=== PATIENT | female | born 2000 | race Caucasian/White ===

== ENCOUNTER 2022-01-06 19:40 | Emergency (ER) | payer OTHER, SELFPAY ==
--- NOTE | ~2022-01-06 | CT_ITS ---
EXAMINATION: CT HEAD WITHOUT CONTRAST CLINICAL INFORMATION: Syncope. COMPARISON: None TECHNIQUE: Contiguous axial imaging was performed from the skull base to vertex without intravenous administration of contrast. Coronal and sagittal reformatted images are performed at CT scanner This CT examination was performed using dose optimization techniques as appropriate, variously including the following: *Automated exposure control *Adjustment of mA and/or kV according to patient size (this includes techniques or standardized protocols for targeted exams where dose is matched to indication/reason for exam; i.e. extremities or head) *Use of iterative reconstruction technique DLP: 740 mGy-cm FINDINGS: There is no evidence of acute intracranial hemorrhage or territorial infarction. No abnormal mass-effect or midline shift is seen. Edward to white matter differentiation is well preserved. No extra-axial fluid collections are identified. The ventricles are normal in size. There is no abnormal attenuation within the brain parenchyma. There is no osseous abnormality. The mastoid air cells and visualized portions of the paranasal sinuses are well-aerated. CT/CT head/brain wo IV con IMPRESSION: No acute intracranial pathology.
[2022-01-06 19:47] VITALS: BP 110/78; PULSE 80; O2SAT 100
[2022-01-06 19:50] VITALS: BP 101/59; PULSE 77; RESP 18; TEMP 36.5; O2SAT 97; BMI 40.0
[2022-01-06 20:33] LABS: Hematocrit 39.5 % (37.0-47.0); Hemoglobin 13.4 g/dl (12.0-16.0); Mean Corpuscular HGB Conc 33.9 g/dl (31.0-35.0); Mean Corpuscular Hemoglobin 31.2 pg (27.0-33.0); Mean Corpuscular Volume 92.1 fL (80.0-98.0); Platelet Count 218 X10*3/uL (160-400); Red Blood Count 4.29 X10*6/uL (4.20-5.50); Red Cell Distribution Width 13.1 % (11.0-16.0); White Blood Count 7.8 X10*3/uL (4.8-10.8)
--- NOTE | 2022-01-06 20:41 | ECG_ITS ---
Test Reason : syncope Blood Pressure : / mmHG Vent. Rate : 073 BPM Atrial Rate : 073 BPM P-R Int : 144 ms QRS Dur : 074 ms QT Int : 402 ms P-R-T Axes : 009 019 -01 degrees QTc Int : 442 ms Normal sinus rhythm Normal ECG No previous ECGs available Referred By: Generic ED Physician Electronically Signed By:GALINDO SILVA
[2022-01-06 20:52] LABS: Appearance Urine Clear; Color Urine Yellow; Glucose Urine UA Negative (Negative); Leukocyte Esterase Urine Moderate (2+) (Negative); Nitrite Urine Negative (Negative); PH 6.5 (5.0-9.0); Specific Gravity - Urine 1.015 (1.005-1.025); Urine Blood Negative (Negative); Urine Ketones Negative (Negative); Urine Protein Negative (Neg-Trace)
[2022-01-06 20:57] LABS: Bacteria Urine 2+ (None Seen); Hyaline Casts Urine 0-2 /LPF (0-2); RBC Urine 0-2 /HPF (0-2)
[2022-01-06 21:06] LABS: UPreg QC Valid YES; Urine Pregnancy NEGATIVE (NEGATIVE)
--- NOTE | 2022-01-06 21:33 | ED_ITS ---
HPI - Syncope General Chief Complaint: Syncope <AUDI Mancera Last Filed: 01/07/22 01:38> Stated Complaint: Syncopal Epoisode <AUDI Mancera Last Filed: 01/07/22 01:38> Time Seen by Provider: 01/06/22 21:33 <UADI Mancera Last Filed: 01/07/22 01:38> Source: patient and EMS <AUDI Mancera Last Filed: 01/07/22 01:38> Mode of arrival: EMS <AUDI Mancera Last Filed: 01/07/22 01:38> Limitations: no limitations <AUDI Mancera Last Filed: 01/07/22 01:38> History of Present Illness HPI narrative: This is a 21-year-old female past medical history significant for ADHD, autism, conversion disorder presenting to the emergency department via ambulance after a witnessed near syncopal episode, according to EMS patient was at [facility] at an open house, there was a lot of loud music, strobe lights, patient felt like she was having sensory overload, and felt she was going to pass out. According to EMS she did not fall and hit her head, however she reports loss of consciousness. Patient tells me that she feels as though her legs gave out on her, typical for her during a conversion disorder episode, she tells me that she is having pain all over her body particularly her head, she tells me she does not really remember what happened states she lost consciousness., she tells me she is feeling extremely anxious and would like her mother to be next to her, she tells me she is too nervous to talk right now. Denies chest pain, shortness of breath, nausea, vomiting, abdominal pain, vision changes, dizziness. Not on blood thinners. <AUDI Mancera Last Filed: 01/07/22 01:38> MD complaint: loss of consciousness and felt faint <AUDI Mancera Last Filed: 01/07/22 01:38> Related Data Allergies/Adverse Reactions: Allergies Allergy/AdvReac Type Severity Reaction Status Date / Time amoxicillin Allergy Rash Verified 01/06/22 20:08 <AUDI Mancera - Last Filed: 01/07/22 01:38> Review of Systems Review of Systems: Constitutional : No Weight loss, No Fever, No Chills, No Fatigue, No Malaise ENT/Mouth : No sore throat, No Rhinorrhea Eyes: No Eye Pain, No Swelling, No Redness Cardiovascular : No Chest Pain, No SOB, No Dyspnea on Exertion, No Orthopnea, No Edema, No Palpitations Respiratory : No Cough, No Sputum, No Wheezing Gastrointestinal : No Nausea, No Vomiting, No Diarrhea, No Constipation, No abdominal Pain, No Hematochezia, No Melena Genitourinary : No Dysuria, No Urinary Frequency, No Hematuria, Musculoskeletal : No joint pain, No Myalgias, No Joint Swelling Skin : No Skin Lesions, No rash Neuro : No Weakness, No Numbness, No Dizziness, + Headache All other systems reviewed and are negative <AUDI Mancera - Last Filed: 01/07/22 01:38> Yes all other systems are reviewed and are negative <AUDI Mancera - Last Filed: 01/07/22 01:38> [facility] Past Medical History Attestation statement: The following information was validated with the patient. <AUDI Mancera - Last Filed: 01/07/22 01:38> Source: old records reviewed and nursing notes reviewed <AUDI Mancera Last Filed: 01/07/22 01:38> Social History Social History: Social History Patient Tobacco Use Status: Never used Tobacco Use of substances other than those prescribed or required for medical reasons: No Advance Directives: No Advance Directives Information Provided: Yes <AUDI Mancera Last Filed: 01/07/22 01:38> Physical Exam Vital Signs: Vital Signs: Last Vital Signs Temp 98.2 F 01/07/22 03:49 Pulse 86 01/07/22 03:49 Resp 16 01/07/22 03:49 BP 104/63 01/07/22 03:49 Pulse Ox 97 01/07/22 05:04 O2 Del Method 01/07/22 05:04 BMI result Body Mass Index 40.0 vss <AUDI Mancera - Last Filed: 01/07/22 01:38> Vital Signs: Last Vital Signs Temp 98.2 F 01/07/22 03:49 Pulse 86 01/07/22 03:49 Resp 16 01/07/22 03:49 BP 104/63 01/07/22 03:49 Pulse Ox 97 01/07/22 05:04 O2 Del Method 01/07/22 05:04 BMI result Body Mass Index 40.0 <Patrick Mccarthy MD - Last Filed: 01/07/22 06:14> Appearance: Alert.? Oriented X3.? No acute distress.? Head: Normocephalic, atraumatic, no step-offs or deformities Eyes: Pupils equal, round and reactive to light.? Extraocular movements intact Neck: Normal inspection.? Neck supple.? CVS: Normal heart rate and rhythm.? Pulses normal.? Respiratory: No respiratory distress.? Breath sounds normal.? Abdomen: Soft and nontender.? Skin: Skin warm and dry.? Normal skin color.? Normal skin turgor.? Extremities: No lower extremity edema.? No calf ttp. 5/5 strength to bilateral upper and lower extremities Neuro: Oriented X 3.? No motor deficit.? No sensory deficit. CN 2-12 intact . Normal [id number], [id number]. Steady tandem gait with assistance. <AUDI Mancera - Last Filed: 01/07/22 01:38> Course Reevaluation(s) Reevaluation #1: CBC within normal limits, chemistry with no acute electrolyte abnormalities requiring intervention. EKG with normal sinus rhythm, no signs of acute ischemia. Urine with white blood cells, leukocyte esterases however also moderate amount of epithelial cells, likely contaminated sample patient not complaining of any urinary symptoms, urine negative. CT of the head and brain with no acute findings. <AUDI Mancera - Last Filed: 01/07/22 01:38> Time: 00:32 <AUDI Mancera - Last Filed: 01/07/22 01:38> Reevaluation #2: Patient now tells me she cant walk. Unable to get her up. Tells me she feels horibble, tells me this is likley her conversion do. No meningeal signs on my exam, normal labs, normal head ct, UA and BRADEN pending. At this time patient will need a BHN evaluation. Denies SI and HI. Sign out to Dr. Mccarthy at this time patient will be placed in physician observation to allow more time to be evaluated by the behavioral health team and obtain a urine and BRADEN. <AUDI Mancera - Last Filed: 01/07/22 01:38> Time: 01:33 <AUDI Mancera - Last Filed: 01/07/22 01:38> Reevaluation #3: The patient is feeling better, she is now able to walk. she is concerned about getting back to college because she has mandatory orientation. She told me that she is not suicidal or homicidal and that she believes that she will be okay if she goes back to participate in orientation. I did tell her if she felt as if she was going to hurt herself then she should reach out to the health services or call 911 and we can re-evaluate her here at the hospital. The patient will be discharged and advised to follow-up with health services at [facility] <Patrick Mccarthy MD - Last Filed: 01/07/22 06:14> Time: 06:01 <Patrick Mccarthy MD - Last Filed: 01/07/22 06:14> MDM - Syncope MDM Narrative Medical decision making narrative: 2100 21-year-old female presents status post near syncopal episode, patient poor historian, unable to provide me with a clear history tells me she is feeling extremely anxious. EMS tells me she did not lose consciousness however patient tells me she thinks she did, story is unclear. No evidence signs of trauma. Patient has a history of autism. Physical examination benign however, patient does appear very anxious, neuro exam is nonfocal, following commands. Plan at this time is medical clearance. Will try to get a hold of patient's mother for further information. Will obtain CT of the head to rule out intracranial hemorrhage although unlikely. Will obtain basic labs to rule out infection, basic electrolyte abnormalities. Will also obtain EKG. <AUDI Mayfield - Last Filed: 01/07/22 01:38> Medical Records Attestation: I reviewed the patient's medical records. <AUDI Mancera - Last Filed: 01/07/22 01:38> Lab Data Attestation: I reviewed the patient's lab results. <AUDI Mancera - Last Filed: 01/07/22 01:38> Result diagrams: : 01/06/22 20:19 01/06/22 20:19 <AUDI Mancera - Last Filed: 01/07/22 01:38> Labs: Lab Results 01/06/22 01/06/22 01/06/22 Range/Units 20:19 20:19 20:19 WBC 7.8 (4.8-10.8) X10*3/uL RBC 4.29 (4.20-5.50) X10*6/uL Hgb 13.4 (12.0-16.0) g/dl Hct 39.5 (37.0-47.0) % MCV 92.1 (80.0-98.0) fL MCH 31.2 (27.0-33.0) pg MCHC 33.9 (31.0-35.0) g/dl RDW 13.1 (11.0-16.0) % Plt Count 218 (160-400) X10*3/uL MPV 11.0 (9.4-12.3) fL Absolute Nucleated RBC 0.000 (0.0-0.012) X10*3/uL Nucleated RBC % (auto) 0.0 (0.0-0.2) /100WBC Sodium 140 (135-145) mmol/L Potassium 3.9 (3.3-5.1) mmol/L Chloride 106 (96-108) mmol/L Carbon Dioxide 24 (22-29) mmol/L Anion Gap 14 (12-20) BUN 11 (9-16) mg/dL Creatinine 0.79 (0.5-1.4) mg/dL Estim Creat Clear Calc 145.8 Estimated GFR > 60 Random Glucose 98 (60-115) mg/dL Calcium 8.9 (8.4-10.2) mg/dL Total Bilirubin 0.2 (0.0-1.0) mg/dL AST 12 (5-31) U/L ALT 12 (0-31) U/L Alkaline Phosphatase 82 (39-117) U/L Troponin I High Sens < 3.5 (<3.5-17.0) ng/L Total Protein 6.1 L (6.5-8.0) g/dL Albumin 3.5 (3.5-5.0) g/dL Urine Color Urine Appearance Urine pH (5.0-9.0) Ur Specific [place] (1.005-1.025) Urine Protein (Neg-Trace) mg/dL Urine Glucose (UA) (Negative) mg/dL Urine Ketones (Negative) mg/dL Urine Blood (Negative) Urine Nitrite (Negative) Ur Leukocyte Esterase (Negative) Urine RBC (0-2) /HPF Urine WBC (0-5) /HPF Ur Squamous Epith Cells (0-2) /HPF Calcium Oxalate Crystal Urine Bacteria (None Seen) Hyaline Casts (0-2) /LPF Urine Test (NEGATIVE) Urine Opiates Screen (Not Detect) Urine Fentanyl Screen (Not Detect) Ur Barbiturates Screen (Not Detect) Ur Phencyclidine Scrn (Not Detect) Ur Amphetamines Screen (Not Detect) U Benzodiazepines Scrn (Not Detect) Urine Cocaine Screen (Not Detect) U Marijuana (THC) Screen (Not Detect) 01/06/22 01/06/22 01/07/22 Range/Units 20:36 20:36 02:35 WBC (4.8-10.8) X10*3/uL RBC (4.20-5.50) X10*6/uL Hgb (12.0-16.0) g/dl Hct (37.0-47.0) % MCV (80.0-98.0) fL MCH (27.0-33.0) pg MCHC (31.0-35.0) g/dl RDW (11.0-16.0) % Plt Count (160-400) X10*3/uL MPV (9.4-12.3) fL Absolute Nucleated RBC (0.0-0.012) X10*3/uL Nucleated RBC % (auto) (0.0-0.2) /100WBC Sodium (135-145) mmol/L Potassium (3.3-5.1) mmol/L Chloride (96-108) mmol/L Carbon Dioxide (22-29) mmol/L Anion Gap (12-20) BUN (9-16) mg/dL Creatinine (0.5-1.4) mg/dL Estim Creat Clear Calc Estimated GFR Random Glucose (60-115) mg/dL Calcium (8.4-10.2) mg/dL Total Bilirubin (0.0-1.0) mg/dL AST (5-31) U/L ALT (0-31) U/L Alkaline Phosphatase (39-117) U/L Troponin I High Sens (<3.5-17.0) ng/L Total Protein (6.5-8.0) g/dL Albumin (3.5-5.0) g/dL Urine Color Yellow Yellow Urine Appearance Clear Clear Urine pH 6.5 6.5 (5.0-9.0) Ur Specific [place] 1.015 1.015 (1.005-1.025) Urine Protein Negative Negative (Neg-Trace) mg/dL Urine Glucose (UA) Negative Negative (Negative) mg/dL Urine Ketones Negative Negative (Negative) mg/dL Urine Blood Negative Negative (Negative) Urine Nitrite Negative Negative (Negative) Ur Leukocyte Esterase Moderate (2+) H Moderate (2+) H (Negative) Urine RBC 0-2 0-2 (0-2) /HPF Urine WBC 11-20 H 6-10 H (0-5) /HPF Ur Squamous Epith Cells 6-10 6-10 (0-2) /HPF Calcium Oxalate Crystal Present Urine Bacteria 2+ 2+ (None Seen) Hyaline Casts 0-2 0-2 (0-2) /LPF Urine Test NEGATIVE (NEGATIVE) Urine Opiates Screen (Not Detect) Urine Fentanyl Screen (Not Detect) Ur Barbiturates Screen (Not Detect) Ur Phencyclidine Scrn (Not Detect) Ur Amphetamines Screen (Not Detect) U Benzodiazepines Scrn (Not Detect) Urine Cocaine Screen (Not Detect) U Marijuana (THC) Screen (Not Detect) 01/07/22 Range/Units 02:35 WBC (4.8-10.8) X10*3/uL RBC (4.20-5.50) X10*6/uL Hgb (12.0-16.0) g/dl Hct (37.0-47.0) % MCV (80.0-98.0) fL MCH (27.0-33.0) pg MCHC (31.0-35.0) g/dl RDW (11.0-16.0) % Plt Count (160-400) X10*3/uL MPV (9.4-12.3) fL Absolute Nucleated RBC (0.0-0.012) X10*3/uL Nucleated RBC % (auto) (0.0-0.2) /100WBC Sodium (135-145) mmol/L Potassium (3.3-5.1) mmol/L Chloride (96-108) mmol/L Carbon Dioxide (22-29) mmol/L Anion Gap (12-20) BUN (9-16) mg/dL Creatinine (0.5-1.4) mg/dL Estim Creat Clear Calc Estimated GFR Random Glucose (60-115) mg/dL Calcium (8.4-10.2) mg/dL Total Bilirubin (0.0-1.0) mg/dL AST (5-31) U/L ALT (0-31) U/L Alkaline Phosphatase (39-117) U/L Troponin I High Sens (<3.5-17.0) ng/L Total Protein (6.5-8.0) g/dL Albumin (3.5-5.0) g/dL Urine Color Urine Appearance Urine pH (5.0-9.0) Ur Specific [place] (1.005-1.025) Urine Protein (Neg-Trace) mg/dL Urine Glucose (UA) (Negative) mg/dL Urine Ketones (Negative) mg/dL Urine Blood (Negative) Urine Nitrite (Negative) Ur Leukocyte Esterase (Negative) Urine RBC (0-2) /HPF Urine WBC (0-5) /HPF Ur Squamous Epith Cells (0-2) /HPF Calcium Oxalate Crystal Urine Bacteria (None Seen) Hyaline Casts (0-2) /LPF Urine Test (NEGATIVE) Urine Opiates Screen Not Detected (Not Detect) Urine Fentanyl Screen Not Detected (Not Detect) Ur Barbiturates Screen Not Detected (Not Detect) Ur Phencyclidine Scrn Not Detected (Not Detect) Ur Amphetamines Screen Not Detected (Not Detect) U Benzodiazepines Scrn Not Detected (Not Detect) Urine Cocaine Screen Not Detected (Not Detect) U Marijuana (THC) Screen Not Detected (Not Detect) <Susanita Vázquez, PA - Last Filed: 01/07/22 01:38> Lab Results 01/06/22 01/06/22 01/06/22 Range/Units 20:19 20:19 20:19 WBC 7.8 (4.8-10.8) X10*3/uL RBC 4.29 (4.20-5.50) X10*6/uL Hgb 13.4 (12.0-16.0) g/dl Hct 39.5 (37.0-47.0) % MCV 92.1 (80.0-98.0) fL MCH 31.2 (27.0-33.0) pg MCHC 33.9 (31.0-35.0) g/dl RDW 13.1 (11.0-16.0) % Plt Count 218 (160-400) X10*3/uL MPV 11.0 (9.4-12.3) fL Absolute Nucleated RBC 0.000 (0.0-0.012) X10*3/uL Nucleated RBC % (auto) 0.0 (0.0-0.2) /100WBC Sodium 140 (135-145) mmol/L Potassium 3.9 (3.3-5.1) mmol/L Chloride 106 (96-108) mmol/L Carbon Dioxide 24 (22-29) mmol/L Anion Gap 14 (12-20) BUN 11 (9-16) mg/dL Creatinine 0.79 (0.5-1.4) mg/dL Estim Creat Clear Calc 145.8 Estimated GFR > 60 Random Glucose 98 (60-115) mg/dL Calcium 8.9 (8.4-10.2) mg/dL Total Bilirubin 0.2 (0.0-1.0) mg/dL AST 12 (5-31) U/L ALT 12 (0-31) U/L Alkaline Phosphatase 82 (39-117) U/L Troponin I High Sens < 3.5 (<3.5-17.0) ng/L Total Protein 6.1 L (6.5-8.0) g/dL Albumin 3.5 (3.5-5.0) g/dL Urine Color Urine Appearance Urine pH (5.0-9.0) Ur Specific [place] (1.005-1.025) Urine Protein (Neg-Trace) mg/dL Urine Glucose (UA) (Negative) mg/dL Urine Ketones (Negative) mg/dL Urine Blood (Negative) Urine Nitrite (Negative) Ur Leukocyte Esterase (Negative) Urine RBC (0-2) /HPF Urine WBC (0-5) /HPF Ur Squamous Epith Cells (0-2) /HPF Calcium Oxalate Crystal Urine Bacteria (None Seen) Hyaline Casts (0-2) /LPF Urine Test (NEGATIVE) Urine Opiates Screen (Not Detect) Urine Fentanyl Screen (Not Detect) Ur Barbiturates Screen (Not Detect) Ur Phencyclidine Scrn (Not Detect) Ur Amphetamines Screen (Not Detect) U Benzodiazepines Scrn (Not Detect) Urine Cocaine Screen (Not Detect) U Marijuana (THC) Screen (Not Detect) 01/06/22 01/06/22 01/07/22 Range/Units 20:36 20:36 02:35 WBC (4.8-10.8) X10*3/uL RBC (4.20-5.50) X10*6/uL Hgb (12.0-16.0) g/dl Hct (37.0-47.0) % MCV (80.0-98.0) fL MCH (27.0-33.0) pg MCHC (31.0-35.0) g/dl RDW (11.0-16.0) % Plt Count (160-400) X10*3/uL MPV (9.4-12.3) fL Absolute Nucleated RBC (0.0-0.012) X10*3/uL Nucleated RBC % (auto) (0.0-0.2) /100WBC Sodium (135-145) mmol/L Potassium (3.3-5.1) mmol/L Chloride (96-108) mmol/L Carbon Dioxide (22-29) mmol/L Anion Gap (12-20) BUN (9-16) mg/dL Creatinine (0.5-1.4) mg/dL Estim Creat Clear Calc Estimated GFR Random Glucose (60-115) mg/dL Calcium (8.4-10.2) mg/dL Total Bilirubin (0.0-1.0) mg/dL AST (5-31) U/L ALT (0-31) U/L Alkaline Phosphatase (39-117) U/L Troponin I High Sens (<3.5-17.0) ng/L Total Protein (6.5-8.0) g/dL Albumin (3.5-5.0) g/dL Urine Color Yellow Yellow Urine Appearance Clear Clear Urine pH 6.5 6.5 (5.0-9.0) Ur Specific [place] 1.015 1.015 (1.005-1.025) Urine Protein Negative Negative (Neg-Trace) mg/dL Urine Glucose (UA) Negative Negative (Negative) mg/dL Urine Ketones Negative Negative (Negative) mg/dL Urine Blood Negative Negative (Negative) Urine Nitrite Negative Negative (Negative) Ur Leukocyte Esterase Moderate (2+) H Moderate (2+) H (Negative) Urine RBC 0-2 0-2 (0-2) /HPF Urine WBC 11-20 H 6-10 H (0-5) /HPF Ur Squamous Epith Cells 6-10 6-10 (0-2) /HPF Calcium Oxalate Crystal Present Urine Bacteria 2+ 2+ (None Seen) Hyaline Casts 0-2 0-2 (0-2) /LPF Urine Test NEGATIVE (NEGATIVE) Urine Opiates Screen (Not Detect) Urine Fentanyl Screen (Not Detect) Ur Barbiturates Screen (Not Detect) Ur Phencyclidine Scrn (Not Detect) Ur Amphetamines Screen (Not Detect) U Benzodiazepines Scrn (Not Detect) Urine Cocaine Screen (Not Detect) U Marijuana (THC) Screen (Not Detect) 01/07/22 Range/Units 02:35 WBC (4.8-10.8) X10*3/uL RBC (4.20-5.50) X10*6/uL Hgb (12.0-16.0) g/dl Hct (37.0-47.0) % MCV (80.0-98.0) fL MCH (27.0-33.0) pg MCHC (31.0-35.0) g/dl RDW (11.0-16.0) % Plt Count (160-400) X10*3/uL MPV (9.4-12.3) fL Absolute Nucleated RBC (0.0-0.012) X10*3/uL Nucleated RBC % (auto) (0.0-0.2) /100WBC Sodium (135-145) mmol/L Potassium (3.3-5.1) mmol/L Chloride (96-108) mmol/L Carbon Dioxide (22-29) mmol/L Anion Gap (12-20) BUN (9-16) mg/dL Creatinine (0.5-1.4) mg/dL Estim Creat Clear Calc Estimated GFR Random Glucose (60-115) mg/dL Calcium (8.4-10.2) mg/dL Total Bilirubin (0.0-1.0) mg/dL AST (5-31) U/L ALT (0-31) U/L Alkaline Phosphatase (39-117) U/L Troponin I High Sens (<3.5-17.0) ng/L Total Protein (6.5-8.0) g/dL Albumin (3.5-5.0) g/dL Urine Color Urine Appearance Urine pH (5.0-9.0) Ur Specific [place] (1.005-1.025) Urine Protein (Neg-Trace) mg/dL Urine Glucose (UA) (Negative) mg/dL Urine Ketones (Negative) mg/dL Urine Blood (Negative) Urine Nitrite (Negative) Ur Leukocyte Esterase (Negative) Urine RBC (0-2) /HPF Urine WBC (0-5) /HPF Ur Squamous Epith Cells (0-2) /HPF Calcium Oxalate Crystal Urine Bacteria (None Seen) Hyaline Casts (0-2) /LPF Urine Test (NEGATIVE) Urine Opiates Screen Not Detected (Not Detect) Urine Fentanyl Screen Not Detected (Not Detect) Ur Barbiturates Screen Not Detected (Not Detect) Ur Phencyclidine Scrn Not Detected (Not Detect) Ur Amphetamines Screen Not Detected (Not Detect) U Benzodiazepines Scrn Not Detected (Not Detect) Urine Cocaine Screen Not Detected (Not Detect) U Marijuana (THC) Screen Not Detected (Not Detect) <Patrick Mccarthy MD - Last Filed: 01/07/22 06:14> ECG Data Attestation: I personally reviewed and interpreted this ECG as follows: <AUDI Mancera - Last Filed: 01/07/22 01:38> ECG interpretation date: 01/07/22 <AUDI Mancera - Last Filed: 01/07/22 01:38> ECG interpretation time: 01:35 <AUDI Mancera Last Filed: 01/07/22 01:38> Prior ECG tracings: available for review <AUDI Mancera Last Filed: 01/07/22 01:38> Interpretation: Ventricular rate of 73, NH normal, QRS normal, QT/QTC normal. EKG with normal sinus rhythm, no ST elevations or inversions concerning for ischemia. No previous EKGs to compare with. <AUDI Mancera Last Filed: 01/07/22 01:38> Critical Care Time Critical Care Time Critical Care Time: No <AUDI Mancera Last Filed: 01/07/22 01:38> Discharge Plan Discharge Clinical Impression: Pre-syncope, Conversion disorder, Depression, Anxiety <AUDI Mancera Last Filed: 01/07/22 01:38> Patient Disposition: Home, Self-Care <AUDI Mancera Last Filed: 01/07/22 01:38> Instructions: Anxiety (ED) <AUDI Mancera Last Filed: 01/07/22 01:38> Additional Instructions: Your blood work was unremarkable. Your CT scan of the brain was unremarkable. At this time, I believe that your symptoms were caused by anxiety which probably triggered your conversion disorder. Follow-up with health services at [facility] within 2 days. Please return to the emergency department if your symptoms get worse or if you develop any symptoms that are concerning to you. <AUDI Mancera Last Filed: 01/07/22 01:38>
[2022-01-06] MEDS: LORazepam 0.5 MG TABLET PO (22:05)
[2022-01-06 22:08] VITALS: BP 130/74; PULSE 80; RESP 16; TEMP 36.5; O2SAT 96
[2022-01-06 23:32] LABS: Alanine Aminotransferase 12 U/L (0-31); Albumin Level 3.5 g/dL (3.5-5.0); Alkaline Phosphatase 82 U/L (39-117); Anion Gap 14 (12-20); Aspartate Amino Transferase 12 U/L (5-31); Bilirubin Total 0.2 mg/dL (0.0-1.0); Blood Urea Nitrogen 11 mg/dL (9-16); Calcium 8.9 mg/dL (8.4-10.2); Carbon Dioxide 24 mmol/L (22-29); Chloride 106 mmol/L (96-108); Creatinine Clr Calc Pharmacy 145.8; Estimated Glomerular Filt Rate > 60; Glucose Random 98 mg/dL (60-115); Potassium 3.9 mmol/L (3.3-5.1); Sodium 140 mmol/L (135-145); Total Protein 6.1 g/dL (6.5-8.0)
[2022-01-07 01:05] LABS: Troponin-I High Sensitivity < 3.5 ng/L (<3.5-17.0)
[2022-01-07 02:28] VITALS: BP 97/55; PULSE 79; RESP 16; TEMP 36.6; O2SAT 98
[2022-01-07 02:47] LABS: Appearance Urine Clear; Color Urine Yellow; Glucose Urine UA Negative (Negative); Leukocyte Esterase Urine Moderate (2+) (Negative); Nitrite Urine Negative (Negative); PH 6.5 (5.0-9.0); Specific Gravity - Urine 1.015 (1.005-1.025); Urine Blood Negative (Negative); Urine Ketones Negative (Negative); Urine Protein Negative (Neg-Trace)
[2022-01-07 03:00] LABS: Bacteria Urine 2+ (None Seen); Calcium Oxalate Crystals Urine Present; Hyaline Casts Urine 0-2 /LPF (0-2); RBC Urine 0-2 /HPF (0-2)
[2022-01-07 03:03] LABS: Amphetamine Screen Urine Not Detected (Not Detect); Barbiturates, Urine Not Detected (Not Detect); Benzodiazepines Screen Urine Not Detected (Not Detect); Cannabinoid Screen Urine Not Detected (Not Detect); Cocaine Screen Urine Not Detected (Not Detect); Fentanyl, urine Not Detected (Not Detect); Opiate Screen Urine Not Detected (Not Detect); Phencyclidine Screen Urine Not Detected (Not Detect)
[2022-01-07 03:49] VITALS: BP 104/63; PULSE 86; RESP 16; TEMP 36.8; O2SAT 96
--- NOTE | 2022-01-07 05:03 | PC.NURSE ---
Woke up pt to assess pain. pt denies any pain. Pt c/o not being able to move while she is moving in bed.
[2022-01-07 05:04] VITALS: O2SAT 97
--- NOTE | 2022-01-07 05:38 | PC.NURSE ---
pt a&o, no sob or chest pain. first time being away from home at school. pt reports she had a panic attack yesterday that might have triggered symptoms. She believe she could of taken the wrong medication. Neuro assessment was intact. Pt was able to sit up in bed after gentle conversation about being away in school. Did call contact after verbal permission. Will be calling school to transport back to campus.
--- NOTE | 2022-01-07 05:54 | PC.NURSE ---
Called campus security to secure pt ride back to campus. pt able to communicate with staff, pt will be discharge to waiting room until picked up.
--- NOTE | 2022-01-07 06:03 | PC.NURSE ---
spoke to pt mom regarding an update.
--- NOTE | 2022-01-07 06:04 | PC.NURSE ---
pt oob with a steady gait to the bathroom.
--- NOTE | 2022-01-07 06:14 | PC.NURSE ---
D/C instructions given and explained, pt ambulates safely and independently, outpatient resources given to pt, pt is alert and oriented
[2022-01-07 06:15] VITALS: BP 113/66; PULSE 77; RESP 14; O2SAT 98
== END 2022-01-07 06:26 | disposition home or self-care (01) ==
PROVIDERS: Physician Assistant; Student in an Organized Health Care Education/Training Program; Emergency Provider Emergency Medicine Emergency Medical Services
DX: R55 Syncope and collapse (principal); F44.9 Dissociative and conversion disorder, unspecified; F41.9 Anxiety disorder, unspecified; F32.A Depression, unspecified; Z79.899 Other long term (current) drug therapy
CPT/HCPCS: 36415; 70450; 80053; 80307; 81001; 81025; 84484; 85027; 87086; 93005; 99285